=== PATIENT | male | born 1985 | race African-American/Black ===

== ENCOUNTER 2016-08-07 21:33 | Emergency (ER) | payer OTHER ==
[~2016-08-07] VITALS: Ht 180.3 cm; Wt 65.8 kg
[2016-08-07] MEDS ORDERED: NOVOLOG FL100 UNIT/M SC (21:55)
[2016-08-07] MEDS ORDERED: [UNRECOGNIZED DRUG - OTHER] MC (21:55)
[2016-08-07] MEDS ORDERED: HYDROCODONE-AP1 EAC6 PO (22:49)
[2016-08-07 22:57] VITALS: BP 127/79
== END 2016-08-07 22:58 | disposition home or self-care (01) ==
LOC: ER 21:33
DX: S30.0XXA Contusion of lower back and pelvis, initial encounter (principal); E11.9 Type 2 diabetes mellitus without complications; F12.10 Cannabis abuse, uncomplicated; Z87.891 Personal history of nicotine dependence; V29.9XXA Motorcycle rider (driver) (passenger) injured in unspecified traffic accident, initial encounter; Y93.55 Activity, bike riding; Y92.488 Other paved roadways as the place of occurrence of the external cause; Y99.8 Other external cause status